=== PATIENT | female | born 1970 | race Two or more races ===

== ENCOUNTER 2024-01-17 06:33 | Emergency (ER) | payer OTHER ==
[~2024-01-17] VITALS: Ht 160 cm; Wt 81.6 kg
[2024-01-17] MEDS ORDERED: ORPHENADRINE CITRATE 30 MG/ML AMPUL IM STA (08:32)
[2024-01-17] MEDS ORDERED: KETOROLAC TROMETHAMINE 60 MG VIAL IM STA (08:32)
== END 2024-01-17 09:13 | disposition home or self-care (01) ==
LOC: ER 06:34
DX: M62.838 Other muscle spasm (principal); M50.30 Other cervical disc degeneration, unspecified cervical region